=== PATIENT | female | born 1975 | race Caucasian/White ===

== ENCOUNTER 2018-12-02 10:43 | Outpatient (CLI) | payer OTHER ==
--- NOTE | 2018-12-02 11:19 | MMO ---
Bilateral MAMMO Bilat Screen [facility]. CLINICAL HISTORY: Patient is 43 years old and is seen for screening. The patient has no family history of breast cancer. The patient has no personal history of cancer. The patient has a history of Implants in 2010. There are bilateral retro-pectoral saline implants VIEWS: The views performed were: bilateral craniocaudal and bilateral mediolateral oblique. This study has been interpreted with the assistance of computer-aided detection. MAMMOGRAM FINDINGS: There are scattered fibroglandular densities. Right breast: 9 mm oval mass in the deep upper outer quadrant. Left breast: 2.3 cm upper outer quadrant round mass. Bilateral implants are intact. IMPRESSION: FINDINGS IN BOTH BREASTS REQUIRE ADDITIONAL EVALUATION. ADDITIONAL PROJECTIONS (BILATERAL MEDIOLATERAL) ARE RECOMMENDED. ULTRASOUND IF THE MASSES PERSISTS. ACR BI-RADS Category 0 - Incomplete: Need additional imaging evaluation. [facility] will notify the patient of the need for additional imaging services. MAMMOGRAPHY NOTE: 1. A negative mammogram report should not delay a biopsy if a dominant of clinically suspicious mass is present. 2. Approximately 10% to 15% of breast cancers are not detected by mammography. 3. Adenosis and dense breasts may obscure an underlying neoplasm. Reported by: DAVID ARNDT MD Electonically Signed: [id number]
== END 2018-12-02 10:44 | disposition home or self-care (01) ==
LOC: SCSMAMMO 10:43
PROVIDERS: ATTEND Family Medicine
DX: Z12.31 Encounter for screening mammogram for malignant neoplasm of breast (principal); N63.11 Unspecified lump in the right breast, upper outer quadrant; N63.21 Unspecified lump in the left breast, upper outer quadrant; Z98.82 Breast implant status
CPT/HCPCS: 77067

== ENCOUNTER 2018-12-05 12:56 | Outpatient (CLI) | payer OTHER ==
--- NOTE | 2018-12-05 14:02 | MMO ---
Bilateral MAMMO Bilat Diag [facility]. CLINICAL HISTORY: Patient is 43 years old and is seen for additional evaluation requested at current screening. The patient has no family history of breast cancer. The patient has no personal history of cancer. The patient has a history of Implants in 2010. VIEWS: The views performed were: bilateral craniocaudal spot compression with tomosynthesis; bilateral mediolateral oblique spot compression with tomosynthesis; bilateral mediolateral; bilateral mediolateral with tomosynthesis; and bilateral Implant displaced with tomosynthesis. FILMS COMPARED: The present examination has been compared to prior imaging studies performed at [facility] on 12/02/2018, and at [facility] on 12/05/2018. MAMMOGRAM FINDINGS: There are scattered fibroglandular densities. Finding 1: There is an equal density, oval mass with circumscribed margins seen in the left breast at 12 o'clock. The mass was shown to be a cyst on ultrasound. Finding 2: There is an equal density, oval mass measuring 10 millimeters with circumscribed margins seen in the right breast at 9 o'clock. The mass was shown to be a probable debris filled cyst on ultrasound. IMPRESSION: FINDING 1: MASS IN THE LEFT BREAST IS BENIGN. FINDING 2: MASS IN THE RIGHT BREAST IS PROBABLY BENIGN. FOLLOW-UP ULTRASOUND IN 6 MONTHS IS RECOMMENDED. 3BTHE RESULTS OF THIS EXAM WERE SENT TO THE PATIENT.0B ACR BI-RADS Category 3 - Probably benign finding - short interval follow-up suggested. [facility] will notify the patient of the need for additional imaging services. MAMMOGRAPHY NOTE: 1. A negative mammogram report should not delay a biopsy if a dominant of clinically suspicious mass is present. 2. Approximately 10% to 15% of breast cancers are not detected by mammography. 3. Adenosis and dense breasts may obscure an underlying neoplasm. Reported by: JOHNSON SMITH MD Electonically Signed: [id number]
--- NOTE | 2018-12-05 14:30 | ULT ---
BILATERAL LIMITED BREAST ULRASOUND: Date: 12-05-18 History: Bilateral breast masses. FINDINGS: Limited sonographic interrogation was performed of the left breast in the region of mammographic conc donna. A simple cyst measuring 2.4 cm is identified, corresponding to the mammogram finding. At the 10 o'clock position of the right breast is a circumscribed hypoechoic mass with internal echoe s measuring about 8 mm maximally. There is enhanced through transmission and thus no shadowing. No in ternal vascularity is seen. This likely reflects a debris filled cyst. IMPRESSION: 1. Probable debris filled cyst involving the 10 o'clock position of the right breast. 6-month follow up right breast ultrasound is recommended. BIRADS category 3 - probably benign findings. 2. Simple cyst corresponds to the mammographic finding in the left breast. BIRADS CATEGORY 2 - benign findings. POS: OFF
== END 2018-12-05 12:57 | disposition home or self-care (01) ==
LOC: BICMAMMO 12:56
PROVIDERS: ATTEND Family Medicine
DX: N63.20 Unspecified lump in the left breast, unspecified quadrant (principal); N63.10 Unspecified lump in the right breast, unspecified quadrant
CPT/HCPCS: 77066; G0279

== ENCOUNTER 2018-12-07 00:43 | Day surgery (SDC) | payer OTHER ==
[2018-12-07] MEDS ORDERED: Morphine 4 MG/ML VIAL ONE ×4 (00:55→02:51)
[2018-12-07] MEDS ORDERED: Ondansetron PF 4 MG/2 ML Vial ONE (00:55)
[2018-12-07] MEDS ORDERED: Ketorolac Tromethamine 30 MG/ML VIAL ONE (00:55)
[2018-12-07 01:15] LABS: BHCG - Serum Negative (NEGATIVE); Pregs Control Background? CLEAR/WHITE (CLR/WHITE); Pregs Control Bar Appear? YES (CONTROL BAR)
[2018-12-07 01:24] LABS: #Basophils 0.1 thou/uL (0.0-0.2); #Eosinphils 0.4 thou/uL (0.0-0.7); #Lymphocytes 2.5 thou/uL (1.20-3.40); #Monocytes 0.5 thou/uL (0.11-0.59); #Neutrophils 8.5 thou/uL (1.40-6.50); %Basophils 0.8 % (0.0-1.0); %Lymphocytes 20.9 % (21.0-51.0); %Monocytes 4.5 % (0.0-10.0); %Neutrophils 70.7 % (42.0-75.0); ALT (SGPT) 23 U/L (8-55); AST (SGOT) 17 U/L (5-34); Albumin 4.4 g/dL (3.5-5.0); Alkaline Phosphatase 59 U/L (40-150); Anion Gap 14 mmol/L (10-20); BUN (Urea Nitrogen) 11 mg/dL (7.0-18.7); Bilirubin, Total 0.3 mg/dL (0.2-1.2); Calc. Creatinine Clearance 0 mL/min (70-130); Calcium 9.9 mg/dL (7.8-10.44); Carbon Dioxide 27 mmol/L (22-29); Chloride 103 mmol/L (98-107); Estimated GFR-MDRD 71; Glucose 127 mg/dL (70-105); Hemoglobin 13.6 g/dL (12.0-16.0); Lipase 25 U/L (8-78); Mean Corpuscular Hemoglobin 30.9 pg (27.0-31.0); Mean Platelet Volume 6.6 fL (7.4-10.4); Platelet Count 309 thou/uL (130-400); Potassium 3.8 mmol/L (3.5-5.1); Protein, Total 7.4 g/dL (6.0-8.3); RBC Distribution Width 12.4 % (11.5-14.5); Red Blood Cell (RBC) Count 4.41 mill/uL (4.20-5.40); Sodium 140 mmol/L (136-145)
[2018-12-07 01:31] LABS: Bilirubin Negative (Negative); Blood, Urine Small (Negative); Clarity Cloudy (Clear); Glucose, Urine (Dipstick) Negative (Negative); Leukocyte Negative (Negative); Nitrite Negative (Negative); Protein, Urine (Dipstick) Negative (Neg-Trace); Urobilinogen 0.2 mg/dL (Less than 2); WBC/HPF None Seen HPF (0-3)
[2018-12-07 01:32] LABS: Bacteria/HPF None Seen HPF (None Seen); Squamous Epithelial 0-3 HPF (0-3)
[2018-12-07] MEDS ORDERED: KETAMINE 100 MG/ML (5ML VIAL) ONE (01:59)
[2018-12-07] MEDS ORDERED: Bupivacaine HCl 0.5%/Epinephrine 1:200,000/PF 30 ml Vial ONE (03:33)
[2018-12-07] MEDS ORDERED: Fentanyl 100 MCG/2 ML VIAL ONE (03:58)
[2018-12-07] MEDS ORDERED: HYDROmorphone 2 MG/ML VIAL ONE (03:58)
[2018-12-07] MEDS ORDERED: Meperidine HCl/PF 25 MG/ML VIAL ONE (05:39)
[2018-12-07] MEDS ORDERED: Promethazine HCl 25 MG/ML VIAL ONE (06:01)
--- NOTE | 2018-12-07 06:54 | OP ---
DATE OF PROCEDURE: 12/07/2018 PREOPERATIVE DIAGNOSES: 1. Acute pelvic pain. 2. Adnexal mass. 3. Ovarian torsion, suspected. POSTOPERATIVE DIAGNOSES: 1. Acute pelvic pain. 2. Adnexal mass. 3. Ovarian torsion, confirmed. PROCEDURE: Diagnostic laparoscopy with left salpingo-oophorectomy. COMPLICATIONS: None. COUNTS: Correct. CONDITION: Stable to recovery room. FINDINGS: Large left ovarian mass with complete torsion, nonviable in appearance; dark purple, almost black in color. SPECIMENS: Left tube and ovary to Pathology. ESTIMATED BLOOD LOSS: Less than 20 mL. INDICATIONS FOR PROCEDURE: Ms. Mejias is a 43-year-old female who presented to the emergency room with acute abdominal pain that began at about 7 o'clock prior to this presentation. She was diagnosed with an 8 cm adnexal mass and no blood flow by ultrasound with concerns of ovarian torsion. The patient was transferred to [facility] where she was seen by myself. The patient again confirmed this report. She said her pain had been somewhat improved, but still quite intense after a total of 16 mg of morphine, 20 mg of ketamine, 30 mg of Toradol. After obtaining a complete history and physical exam, the patient was recommended for surgery, diagnostic laparoscopy with possible salpingo oophorectomy versus cystectomy. The patient expressed a strong desire to never have to go back to the operating room again and did not have any reservations about removal of the tube and ovary. However, the plan was preservation if possible as the patient is premenopausal by age. DESCRIPTION OF PROCEDURE: After risks, benefits, and alternatives were discussed and written consent obtained, we went to the operating room where she was placed under general anesthesia without difficulty. She was placed in a dorsal supine position. She was prepared and draped in normal sterile fashion. 10 mL of 0.25 % Marcaine were used to inject at the incision site, the umbilicus, suprapubic region at midline, and left lateral region. A 5 mm skin incision was made in the base of the umbilicus and on the left lateral and a 10 to 12 mm incision was made in the suprapubic region. A Veress needle was then introduced into the abdomen without difficulty with confirmation by water drop test and entry pressure of 5 mmHg. Abdomen was insufflated to 12 to 15 mmHg. A 5 mm port with obturator was then introduced and proper placement confirmed by laparoscope. Initially evaluating the pelvis, it appears that the patient may have a lot of adhesive disease closing off the pelvis to an abdominal view. However, after a little more evaluation, it was noted that the bladder was full. A Sarkar catheter was then placed intraoperatively for drainage of bladder. With the bladder drained, immediately became visible was the pelvis and the adnexal mass which was deep dark purple and the pelvic bowl as patient was absent of the uterus and the right ovary and tube. It appeared that the patient had an ovary and tube that had rotated multiple times and again appeared nonviable being extremely dark purple. The decision at this time was then removal of the tube and ovary, which was done with the LigaSure device. There was a long pedicle that was protruding from the pelvic sidewall and away from the sidewall. With a confidence that the ureter was free and clear, this pedicle ligature device was then used for ligation and transection. The adnexal mass was then removed with an EndoCatch bag through the abdominal port with some extension of the fascial incision. Once this was completed and hemostasis was confirmed, the suprapubic fascial defect was closed with 0 Vicryl on a UR-6. The skin was closed with Monocryl and the remaining sites after deflation. The patient was then extubated and taken to recovery room in stable condition. Job ID: [id number] MTDD
--- NOTE | 2018-12-07 09:14 | ULT ---
PRELIMINARY REPORT/[facility]/EMERGENCY AFTER HOURS PROCEDURE Addendum created by Rogers Lyles MD on 12/07/2018 3:02 AM Central Time ([place] & [place]) THIS REPORT CONTAINS FINDINGS THAT MAY BE CRITICAL TO PATIENT CARE. The findings were received by BRYAN South at 3:01 AM CDT on 12/07/2018. The findings were acknowledged and understood. Initial Report created on 12/07/2018 2:46 AM Central Time ([place] & [place]) EXAM: US Pelvis Complete, Transabdominal EXAM DATE/TIME: 12/07/2018 2:09 AM CLINICAL HISTORY: 43 years old, female; Other: Sever pelvic pain, abnormal CT; Prior surgery; Surgery date: 6+ months; Surgery type: Uterus and RT ov removed TECHNIQUE: Imaging protocol: Real-time transabdominal pelvic ultrasound with image documentation. Complete exam. COMPARISON: CT Abdomen^_Stone_Protocol (Adult) 12/07/2018 1:06 AM FINDINGS: Uterus/cervix: Uterus is surgically absent. Right adnexa: Surgically absent. Left adnexa: Left ovary is enlarged, measuring 8.9 x 4.9 x 4.3 cm. Simple cysts within the left ovary , measuring 4.6 x 3.8 x 3.6 cm and 3.7 x 3.1 x 3.1 cm. No vascular flow identified within the left ov rich, possibly ovarian torsion. Free fluid: None. IMPRESSION: No vascular flow identified within enlarged left ovary, possibly ovarian torsion. Thank you for allowing us to participate in the care of your patient. Dictated and Authenticated by: Rogers Lyles MD 12/07/2018 2:46 AM Central Time ( & [place]) FINAL REPORT PELVIC ULTRASOUND: HISTORY: Abnormal finding on recent CT. Right ovary and uterus removed. COMPARISON: None. FINDINGS: Two separate anechoic foci are noted in the pelvis, likely of ovarian origin. Overall, the left ovar y measures 8.9 x 4.9 x 4.3 cm. The largest anechoic focus measures 4.6 x 3.8 x 3.6 cm. The second a nechoic focus measures 3.1 x 3.0 x 3.7 cm. Vascular flow is not identified. IMPRESSION: Enlarged left ovary with two cysts. Vascular flow is not identified. There is a possibility of ovar kath torsion. This report is in agreement with the preliminary report by [facility]. CODE QA POS: OFF
--- NOTE | 2018-12-07 11:51 | CT ---
PRELIMINARY REPORT/[facility]/EMERGENCY AFTER HOURS PROCEDURE EXAM: CT Abdomen and Pelvis Without Contrast EXAM DATE/TIME: 12/07/2018 1:06 AM CLINICAL HISTORY: 43 years old, female; Abdominal pain; Localized; Left lower quadrant (llq); Patient HX: Llq pain and vomiting for 6 hours. Hs of partial hyst with right ovary removed in 2009. Hs of appendectomy TECHNIQUE: Imaging protocol: Axial computed tomography images of the abdomen and pelvis without contrast. Coronal and sagittal reformatted images were created and reviewed. Radiation optimization: All CT scans at this facility use at least one of these dose optimization bib hniques: automated exposure control; mA and/or kV adjustment per patient size (includes targeted exam s where dose is matched to clinical indication); or iterative reconstruction. COMPARISON: No relevant prior studies available. FINDINGS: Liver: Normal. Gallbladder and bile ducts: Normal Pancreas: Normal. Spleen: Normal. Adrenals: Normal. Kidneys and ureters: Right upper pole renal cyst. Stomach and bowel: Normal. Appendix: Appendix is surgically absent. Intraperitoneal space: Normal. No free air. No significant fluid collection. Vasculature: Phleboliths within the pelvis. Lymph nodes: Normal. No enlarged lymph nodes. Bladder: Unremarkable as visualized. Reproductive: Prior right oophorectomy. Bones/joints: No acute abnormality. Soft tissues: Partially visualized bilateral breast implants. Bilobed cystic mass within the pelvis, measuring 8.6 x 4.6 cm in dimension, with the largest cystic component measuring approximately 4.2 cm in diameter. Small fat containing umbilical hernia. IMPRESSION: 1. No acute abdominal or pelvic abnormality. 2. Bilobed cystic mass within the pelvis, measuring 8.6 x 4.6 cm in dimension, with the largest cysti c component measuring approximately 4.2 cm in diameter. Findings most compatible with left ovarian cy sts. Consider further evaluation with sonography. Thank you for allowing us to participate in the care of your patient. Dictated and Authenticated by: Rogers Lyles MD 12/07/2018 2:00 AM Central Time ([place] & [place]) FINAL REPORT CT ABDOMEN WITHOUT CONTRAST: CT PELVIS WITHOUT CONTRAST: HISTORY: Left lower quadrant pain. Vomiting x6 hours. Left flank pain. COMPARISON: None. FINDINGS: ABDOMEN: The lung bases are clear. Limited evaluation of the solid organs due to lack of IV contras t. Grossly, no solid organ abnormality. No mesenteric mass, lymphadenopathy, free air, or free flui d. A right renal cyst is noted. Bilaterally, no obstructive uropathy. PELVIS: Abnormal hypodensities in the midline of the pelvis, possibly ovarian. Pelvic ultrasound boone s been performed. Refer to that separate report for further detail. There is nonspecific swelling o f the mesentery in the right lower quadrant. Significance is uncertain, given that the patient repor ts left-sided discomfort/pain. IMPRESSION: 1. No evidence of obstructive uropathy. 2. Swelling of vessels in the right lower quadrant, of uncertain significance. 3. Bilobed hypodensity in the pelvis, which is presumed to be ovarian in origin. Pelvic ultrasound has been performed. Refer to separate report for further detail. CODE QA POS: OFF
== END 2018-12-07 06:29 | disposition home or self-care (01) ==
LOC: SCSER 00:43 → SDC/OP 03:06
PROVIDERS: ATTEND Obstetrics & Gynecology
PROC: 0UT14ZZ Resection of Left Ovary, Percutaneous Endoscopic Approach (ICD-10-PCS; principal; 2018-12-07)
PROC: 0UT64ZZ Resection of Left Fallopian Tube, Percutaneous Endoscopic Approach (ICD-10-PCS; principal; 2018-12-07)
DX: N83.53 Torsion of ovary, ovarian pedicle and fallopian tube (principal); E11.9 Type 2 diabetes mellitus without complications; Z79.899 Other long term (current) drug therapy
CPT/HCPCS: 74176; 76856; 80053; 81003; 81015; 83690; 84703; 85025; 86850; 86900; 86901; 88307; J0670; J1170; J1885; J2175; J2270; J2405; J2550; J3010

== ENCOUNTER 2019-07-16 13:41 | Outpatient (CLI) | payer OTHER ==
--- NOTE | 2019-07-16 15:05 | ULT ---
LIMITED RIGHT BREAST ULTRASOUND: DATE: 07/16/2019. PROVIDED CLINICAL HISTORY: Six-month followup. FINDINGS: Limited sonographic interrogation was performed of the right breast at the 10 o'clock position. Oval circumscribed hypoechoic mass with no shadowing or other concerning findings again demonstrated at t he 10 o'clock position. This is slightly smaller in size compared to the prior examination, measurin g about 6 mm in greatest dimension on the current study. IMPRESSION: BIRADS category 3 - probably benign findings. The patient is due for bilateral diagnostic mammograph y in 6 months.
== END 2019-07-16 13:42 | disposition home or self-care (01) ==
LOC: BICULT 13:41
PROVIDERS: ATTEND Family Medicine
DX: R92.8 Other abnormal and inconclusive findings on diagnostic imaging of breast (principal)

== ENCOUNTER 2019-12-08 14:36 | Outpatient (CLI) | payer OTHER ==
--- NOTE | 2019-12-08 15:31 | MMO ---
Bilateral MAMMO Bilat Diag [facility]. CLINICAL HISTORY: Patient is 44 years old and is seen for diagnostic exam. The patient has no family history of breast cancer. The patient has no personal history of cancer. The patient has a history of Implants in 2010. VIEWS: The views performed were: bilateral craniocaudal with tomosynthesis; bilateral mediolateral oblique with tomosynthesis; and bilateral mediolateral with tomosynthesis. FILMS COMPARED: The present examination has been compared to prior imaging studies performed at [facility] on 12/05/2018 and 07/16/2019. This study has been interpreted with the assistance of computer-aided detection. MAMMOGRAM FINDINGS: There are scattered fibroglandular densities. There are stable benign appearing calcifications seen in both breasts. There are no suspicious masses, suspicious calcifications, or new areas of architectural distortion. IMPRESSION: THERE IS NO MAMMOGRAPHIC EVIDENCE OF MALIGNANCY. A ROUTINE FOLLOW-UP MAMMOGRAM IN 1 YEAR IS RECOMMENDED. THE RESULTS OF THIS EXAM WERE SENT TO THE PATIENT. ACR BI-RADS Category 2 - Benign finding MAMMOGRAPHY NOTE: 1. A negative mammogram report should not delay a biopsy if a dominant of clinically suspicious mass is present. 2. Approximately 10% to 15% of breast cancers are not detected by mammography. 3. Adenosis and dense breasts may obscure an underlying neoplasm. Reported by: RASHEED ORTIZ MD Electonically Signed: [id number]
== END 2019-12-08 14:37 | disposition home or self-care (01) ==
LOC: BICMAMMO 14:36
PROVIDERS: ATTEND Family Medicine
DX: R92.8 Other abnormal and inconclusive findings on diagnostic imaging of breast (principal)
CPT/HCPCS: 77066; G0279

== ENCOUNTER 2021-11-15 13:22 | Outpatient (CLI) | payer BC | END 2021-11-15 13:23 | disposition home or self-care (01) | LOC: BICMAMMO 13:22 | PROVIDERS: ATTEND Family Medicine | DX: R92.8 Other abnormal and inconclusive findings on diagnostic imaging of breast (principal); N63.21 Unspecified lump in the left breast, upper outer quadrant | CPT/HCPCS: 77066; G0279 ==

== ENCOUNTER 2024-03-26 14:45 | Outpatient (CLI) | payer BC | END 2024-03-26 14:46 | disposition home or self-care (01) | LOC: BICMAMMO 14:45 | PROVIDERS: ATTEND Family Medicine | DX: N63.21 Unspecified lump in the left breast, upper outer quadrant (principal); Z98.82 Breast implant status | CPT/HCPCS: G0279 ==

== ENCOUNTER → 2024-04-09 | Day surgery (SDC) | payer BC | LOC: BICULT 12:30 | PROVIDERS: ATTEND Family Medicine | PROC: 07T Lymphatic and Hemic Systems, Resection (ICD-10-PCS; principal; 2024-04-09) | PROC: 0HB5XZX Excision of Chest Skin, External Approach, Diagnostic (ICD-10-PCS; principal; 2024-04-09) | DX: N60.32 Fibrosclerosis of left breast (principal); N63.21 Unspecified lump in the left breast, upper outer quadrant | CPT/HCPCS: 19083; 38505; 76942; 88305; 88341; 88342 ==